=== PATIENT | female | born 1985 | race American Indian/Alaskan Native ===

== ENCOUNTER 2020-09-28 08:53 | Day surgery (SDC) | payer MEDICAID ==
[~2020-09-28 08:53] MED LIST: ceFAZolin/STERILE WATER 2 GM/20 ML SYRINGE IV NR
[2020-09-28] MEDS ORDERED: LIDOCAINE (1%) 10 MG/1 ML VIAL 20 ML MDV ONE (09:29)
[2020-09-28] MEDS ORDERED: BUPIVACAINE/PF (0.25%) 2.5 MG/ML 30 ML VIAL INFILTRATI ONE ×2 (09:29→09:49)
[2020-09-28 09:49] VITALS: BP 136/101
[2020-09-28] MEDS ORDERED: LIDOCAINE (1%) 10 MG/1 ML VIAL 20 ML MDV INFILTRATI ONE (09:50)
--- NOTE | 2020-09-28 10:50 | Procedure Note ---
Date of procedure: 09/28/20 Pre-op diagnosis: soft tissue mass left buttock Post-op diagnosis: same Procedure: excision soft tissue mass left buttock Findings: 1. 4cm exophytic mass of left buttock Procedure: Time out performed. Patient in left lateral decubitus position. Skin prepped and draped in sterile fashion. Local anesthetic infiltrated into skin at intended incision site. Elliptical incision made around mass with 15 blade and subcutaneous tissue dissected with hemostat. Mass transected from normal underlying tissue with 15 blade. Minimal bleeding, controlled with pressure. Skin approximated with 4-0 monocryl subcuticular interrupted stitches and skin glue. Patient tolerated procedure well. All sharps disposed of appropriately. Sharp, sponge, instrument counts correct at end of case. Anesthesia: local Surgeon: THALIA HOUSER Estimated blood loss: minimal Pathology: list (soft tissue mass left buttock) Specimen disposition: to lab Condition: stable Disposition: other (home)
== END 2020-09-28 10:16 | disposition home or self-care (01) ==
LOC: OR 08:53
PROVIDERS: ATTEND Surgery
DX: D17.1 Benign lipomatous neoplasm of skin and subcutaneous tissue of trunk (principal); K21.9 Gastro-esophageal reflux disease without esophagitis; D64.9 Anemia, unspecified; Z87.440 Personal history of urinary (tract) infections; Z79.899 Other long term (current) drug therapy; Z88.8 Allergy status to other drugs, medicaments and biological substances
CPT/HCPCS: 88305; 88307